=== PATIENT | male | born 1965 ===

== ENCOUNTER 2017-10-13 13:04 | Emergency (ER) | payer OTHER, BC ==
[2017-10-13 13:19] VITALS: BP 117/77; PULSE 86; RESP 16; TEMP 98; O2SAT 98
[2017-10-13] MEDS ORDERED: Oxycodone/Acetaminophen 5/325 mg Tab PO STA (13:47)
[2017-10-13] MEDS ORDERED: Oxycodone/Acetaminophen 5/325 mg Tab ONE (13:53)
--- NOTE | 2017-10-13 13:59 | ED PDOC ---
HPI: Back Time Seen by Provider: 10/13/17 13:26 Chief Complaint (Nursing): Back Pain Chief Complaint (Provider): Back Pain History Per: Patient History/Exam Limitations: no limitations Onset/Duration Of Symptoms: Days (x 1) Current Symptoms Are (Timing): Still Present Additional Complaint(s): Jose is a 52 year old male who presents to the emergency department complaining of right lower back pain radiating down to right lower extremity, onset 1 hour ago. Patient states he was at work when he stepped on a rock while wearing shoes with spikes where he slipped and twisted his back. Patient admits to taking Aleve with mild relief. Denies bladder dysfunction. PMD: Lukas Mott Past Medical History Reviewed: Historical Data, Nursing Documentation, Vital Signs Vital Signs: Last Vital Signs Temp 98.0 F 10/13/17 13:16 Pulse 86 10/13/17 13:16 Resp 16 10/13/17 13:16 BP 117/77 10/13/17 13:16 Pulse Ox 98 10/13/17 13:16 - Medical History PMH: HTN, Hyperlipidemia, Hypothyroidism - Surgical History Surgical History: No Surg Hx - Family History Family History: States: Unknown Family Hx - Home Medications Home Medications: Ambulatory Orders Medication Instructions Recorded Cephalexin [Keflex] 500 mg PO BID #14 cap 07/23/14 Naproxen 500 mg PO BID PRN #14 tab 07/23/14 - Allergies Allergies/Adverse Reactions: Allergies Allergy/AdvReac Type Severity Reaction Status Date / Time No Known Allergies Allergy Verified 07/23/14 20:02 Review of Systems ROS Statement: Except As Marked, All Systems Reviewed And Found Negative Musculoskeletal: Positive for: Back Pain (Right lower ), Leg Pain (Right) Physical Exam - Reviewed Nursing Documentation Reviewed: Yes Vital Signs Reviewed: Yes - Physical Exam Extremity: Positive for: Tenderness (Right-sided Lumbosacral Paraspinal) - ECG O2 Sat by Pulse Oximetry: 98 (RA) Pulse Ox Interpretation: Normal Medical Decision Making Medical Decision Making: Time: 13:47 Plan: - Flexeril 10 mg PO - Percocet 5/325 mg Tab - Toradol 30 mg IM STAT Scribe Attestation: Documented by Polo Rincon, acting as a scribe for BENI Pa Provider Scribe Attestation: All medical record entries made by the Scribe were at my direction and personally dictated by me. I have reviewed the chart and agree that the record accurately reflects my personal performance of the history, physical exam, medical decision making, and the department course for this patient. I have also personally directed, reviewed, and agree with the discharge instructions and disposition. Disposition - Disposition Forms: [employer] (Estonian)
== END 2017-10-13 15:08 | disposition home or self-care (01) ==
LOC: H.ER 13:04
DX: M54.9 Dorsalgia, unspecified (principal); W01.0XXA Fall on same level from slipping, tripping and stumbling without subsequent striking against object, initial encounter; Y99.0 Civilian activity done for income or pay; E03.9 Hypothyroidism, unspecified; E78.5 Hyperlipidemia, unspecified; I10 Essential (primary) hypertension
CPT/HCPCS: 96372; 99282; J1885; J2270

== ENCOUNTER 2019-02-14 23:02 | Emergency (ER) | payer BC, OTHER ==
[2019-02-14 23:10] VITALS: BP 154/94; PULSE 89; RESP 16; TEMP 98.8; O2SAT 98
[2019-02-15] MEDS ORDERED: Albuterol-Ipratrop 3 mg / 0.5 (3 ml) UD ONE (00:53)
[2019-02-15 04:30] LABS: BASO # 0.1 K/uL (0.0-0.2); BASO % 0.7 % (0.0-2.0); EOS # 0.4 K/uL (0.0-0.7); EOS % 3.9 % (0.0-4.0); HEMOGLOBIN 13.4 g/dL (12.0-18.0); LYMPH # 1.4 K/uL (1.0-4.3); LYMPH % 11.9 % (20.0-40.0); MEAN CELL VOLUME 83.6 fl (80.0-94.0); MEAN CORPUSCULAR HGB CONC 33.5 g/dL (33.0-37.0); MEAN PLATELET VOLUME 9.6 fl (7.2-11.7); MONO # 1.6 K/uL (0.0-0.8); MONO % 14.5 % (0.0-10.0); NEUT # 7.8 K/uL (1.8-7.0); RBC 4.78 Mil/uL (4.40-5.90); RED CELL DISTRIBUTION WIDTH 14.1 % (11.5-14.5); WHITE BLOOD COUNT 11.4 K/uL (4.8-10.8)
[2019-02-15 05:21] LABS: BLOOD UREA NITROGEN 18 mg/dl (9-20); CALCIUM 8.4 mg/dL (8.4-10.2); GFR NON-AFRICAN AMERICAN > 60
[2019-02-15 05:32] LABS: ALB/GLOB RATIO 1.1 (1.0-2.1); ALBUMIN 3.8 g/dL (3.5-5.0); ALT/SGPT 43 U/L (21-72); AST/SGOT 48 U/L (17-59)
--- NOTE | 2019-02-15 06:08 | ED PDOC ---
HPI: Chest Pain Time Seen by Provider: 02/15/19 01:00 Chief Complaint (Nursing): Chest Pain Chief Complaint (Provider): chest pain History Per: Patient History/Exam Limitations: no limitations Onset/Duration Of Symptoms: Days Additional Complaint(s): 53 y/o male presents for evaluation of midsternal chest pain x 9 hours with associated anterior neck pain. Patient states he checked his blood pressure at home and it was 160's/110 so he took an extra dose of his Losartan at 21:00. Denies headache, dizziness, extremity numbness/weakness, shortness of breath, palpitations, leg pain/swelling. Against Medical Advice - AMA Patient Left Against Medical Advice: The patient declines admission to the hospital and wishes to leave the Emergency Department. This action is against my medical advice. This decision was made with informed refusal. The patient was told that admission to the hospital is necessary. Explanation of the reasons why were discussed. The risks of leaving were explained to the patient and include, but are not limited to, worsening of known or currently unknown conditions, permanent dis ability and from undiagnosed or untreated conditions. The patient has the capacity to make this informed decision and understands my explanation of the current medical problem and risks of leaving. The patient voluntarily accepts these risks and signed an AMA form documenting our conversation. The patient was given the opportunity to ask questions and reconsider. The patient was encouraged to return to the Emergency Department at any time for further care. Past Medical History Reviewed: Historical Data, Nursing Documentation, Vital Signs Vital Signs: Last Vital Signs Temp 98.8 F 02/14/19 23:08 Pulse 89 02/14/19 23:08 Resp 16 02/14/19 23:08 BP 154/94 H 02/14/19 23:08 Pulse Ox 98 02/14/19 23:08 Primary Care Provider: Carisa Huynh A - Medical History PMH: HTN, Hyperlipidemia, Hypothyroidism - Family History Family History: States: Unknown Family Hx - Social History Current smoker - smoking cessation education provided: Yes SMOKER/PACKS PER DAY:: 1 Alcohol: Social Drugs: Denies - Home Medications Home Medications: Ambulatory Orders Medication Instructions Recorded Cephalexin [Keflex] 500 mg PO BID #14 cap 07/23/14 Naproxen 500 mg PO BID PRN #14 tab 07/23/14 Cyclobenzaprine [Cyclobenzaprine 10 mg PO TID #20 tab 10/13/17 HCl] Ibuprofen [Motrin] 600 mg PO Q6 #20 tab 10/13/17 - Allergies Allergies/Adverse Reactions: Allergies Allergy/AdvReac Type Severity Reaction Status Date / Time No Known Allergies Allergy Verified 02/14/19 23:08 Review of Systems ROS Statement: Except As Marked, All Systems Reviewed And Found Negative Cardiovascular: Positive for: Chest Pain Physical Exam - Reviewed Nursing Documentation Reviewed: Yes Vital Signs Reviewed: Yes - Physical Exam Appears: Positive for: Well, Non-toxic, No Acute Distress Head Exam: Positive for: ATRAUMATIC, NORMAL INSPECTION, NORMOCEPHALIC Skin: Positive for: Normal Color Eye Exam: Positive for: Normal appearance ENT: Positive for: Normal ENT Inspection Cardiovascular/Chest: Positive for: Regular Rate, Rhythm Respiratory: Positive for: Wheezing (diffuse expiratory) Gastrointestinal/Abdominal: Positive for: Normal Exam Back: Positive for: Normal Inspection Extremity: Positive for: Normal ROM Neurological/Psych: Positive for: Awake, Alert, Oriented (x3) - Laboratory Results Result Diagrams: 02/15/19 00:37 02/15/19 00:37 Lab Results: Troponin I < 0.0120 ng/mL (0.00-0.120) 02/15/19 00:37 Total Bilirubin 0.7 mg/dl (0.2-1.3) 02/15/19 00:37 AST 48 U/L (17-59) 02/15/19 00:37 ALT 43 U/L (21-72) 02/15/19 00:37 Alkaline Phosphatase 66 U/L (38-126) 02/15/19 00:37 Total Protein 7.1 G/DL (6.3-8.2) 02/15/19 00:37 Albumin 3.8 g/dL (3.5-5.0) 02/15/19 00:37 Globulin 3.3 gm/dL (2.2-3.9) 02/15/19 00:37 Albumin/Globulin Ratio 1.1 (1.0-2.1) 02/15/19 00:37 - ECG ECG: Positive for: Viewed By Me (reviewed by ED attending) ECG Rhythm: Positive for: Sinus Rhythm O2 Sat by Pulse Oximetry: 98 - Radiology X-Ray: Viewed By Me X-Ray Interpretation: No Acute Disease - Progress ED Course And Treament: -ekg -cxr -cbc -cmp -troponin -duoneb Patient refused duoneb, states he has them at home and they "never work" On re-eval, patient states he would like to leave, patient states he looked up his symptoms and he thinks he just needs an antibiotic. Patient was advised no labs are back yet and plan was to admit for observation for chest pain as he has risk factors. Patient states he will follow up with his doctor this morning Patietn advised he will need to sign out against medical advice, and risks of doing so Rx Sushma provided Advised follow up PMD today Return precautions given Disposition - Clinical Impression Clinical Impression: Chest pain - Patient ED Disposition Is Patient to be Admitted: No Counseled Patient/Family Regarding: Studies Performed, Diagnosis, Need For Followup, Rx Given - Disposition Referrals: Carisa Huynh [Primary Care Provider] - Disposition: Against Medical Advice Disposition Time: 04:00 Condition: FAIR
--- NOTE | 2019-02-15 11:25 | CARD ---
APPROVED REPORT Date of service: 02/14/2019 EKG Measurement Heart [id number] <Conclusion> Normal sinus rhythm Normal Electrocardiogram
--- NOTE | 2019-02-15 14:25 | RAD ---
Date of service: 02/15/2019 HISTORY: Pain, hypertension. COMPARISON: 12/07/2010 TECHNIQUE: Chest PA and lateral views FINDINGS: LUNGS: No active pulmonary disease. PLEURA: No significant pleural effusion identified. No pneumothorax apparent. CARDIOVASCULAR: No aortic atherosclerotic calcification present. No radiographic findings to suggest acute or significant cardiovascular disease. OSSEOUS STRUCTURES: No significant abnormalities. VISUALIZED UPPER ABDOMEN: Normal. OTHER FINDINGS: None. IMPRESSION: No active disease. No significant interval change compared to the prior examination(s).
== END 2019-02-15 03:20 | disposition left against medical advice (07) ==
LOC: H.ER 23:02
DX: R07.89 Other chest pain (principal)